=== PATIENT | male | born 1945 | race Caucasian/White ===

== ENCOUNTER 2020-12-27 08:54 | Inpatient (IN) | payer MEDICARE, OTHER ==
[~2020-12-27 08:54] MED LIST: ALTACE 2.5MG T2.5 MG; ASPIRIN E.C. 8181 MG; COMPLETE1 TA1; LIPI MAX1 SGL; LIPITOR 40MG TA40 MG; TENORMIN 2525 MG/TAB
--- NOTE | 2020-12-27 09:00 | NUR ---
Patient to room 319 by wheelchair. Son with the patient. Patient A&Ox3. Denies pain and discomfort. Nurse oriented the patient to location, room and call light. No further needs expressed from the patient. Call light within reach
[2020-12-27 09:58] LABS: BASO % 0.6 % (0.0-2.0); EOS # 0.1 (0.0-0.7); EOS % 2.1 % (0-4.0); GRAN # 4.3 (1.4-6.5); GRAN % 64.3 % (42.2-75.2); HEMOGLOBIN 12.6 g/dl (13.5-18.0); LYMPH # 1.3 (1.2-3.4); LYMPH % 19.6 % (20.0-51.0); MEAN CELL VOLUME 94 fl (80.0-100.0); MEAN CORPUSCULAR HEMOGLOBIN 32 pg (27.0-31.0); MEAN CORPUSCULAR HGB CONC 34 g/dl (33.0-37.0); MEAN PLATELET VOLUME 10.4 fl (7.4-10.4); MONO # 0.9 (0.1-0.6); MONO % 13.1 % (1.7-9.3); PLATELET COUNT 202 K/mm3 (130-400); RED BLOOD COUNT 3.94 M/mm3 (4.20-5.60); REDCELL DISTRIBUTION WIDTH-CV 12.8 % (11.5-14.5)
[2020-12-27 09:59] LABS: HEMATOCRIT 36.9 % (42.0-52.0)
[2020-12-27 10:04] LABS: INR 1.1 (0.8-3.0)
[2020-12-27 10:16] LABS: ALBUMIN 3.7 gm/dL (3.5-5.0); BILIRUBIN,TOTAL 0.5 mg/dL (0.0-1.0); CREATININE, serum 1.07 (0.66-1.25); POTASSIUM 4.3 mmol/L (3.4-5.0); TOTAL PROTEIN 6.4 gm/dL (6.4-8.2)
[2020-12-27] MEDS ORDERED: PLAVIX 75MG TAB75 MG PO (10:27)
[2020-12-27] MEDS ORDERED: OMEGA-3 FISH1000 MG PO (10:27)
[2020-12-27 10:30] VITALS: BP 138/59; PULSE 59; TEMP 98.4
[2020-12-27] MEDS ORDERED: TOPROL XL 50MG50 MG PO (10:31)
[2020-12-27] MEDS ORDERED: CRESTOR40 MG PO (10:32)
[2020-12-27] MEDS ORDERED: ZOLOFT 100MG100 MG PO (10:33)
[2020-12-27] MEDS ORDERED: MASON NATURAL1200 MG PO (10:48)
[2020-12-27] MEDS ORDERED: CENTRUM SILVER1 TAB PO (10:48)
[2020-12-27 11:28] VITALS: BP 132/52; PULSE 51; TEMP 98.1
[2020-12-27 15:43] VITALS: BP 130/65; PULSE 54; TEMP 98
--- NOTE | 2020-12-27 17:17 | NUR ---
Patient having an uneventful day. States that he is "feeling lonely" nurse stated and talked with the patient. VSS. IV CDI. Denies pain and discomfort. No further needs expressed from the patient. Call light within reach
[2020-12-27 20:26] VITALS: BP 136/58; PULSE 52; TEMP 98.3
--- NOTE | 2020-12-27 21:43 | NUR ---
PATIENT ALERT AND ORIENTED X 4. RESTING IN BED, DENIES PAIN AT THIS TIME. PM MEDICATION GIVEN ORDERED. INDEPENDENT IN ROOM. TOLERATED PO WELL. WILL CONTINUE TO MONITOR.
[2020-12-28 01:25] VITALS: BP 130/58; PULSE 52; TEMP 98.2
[2020-12-28 04:38] VITALS: BP 132/56; PULSE 51; TEMP 98
[2020-12-28 08:30] VITALS: BP 136/57; PULSE 48; TEMP 98.5
--- NOTE | 2020-12-28 09:31 | NUR ---
PT UP INDEPENDENTLY IN AND OUT OF ROOM CONSENT OBTAINED FOR LOOP RECORDER PLACEMENT. VSS, AM MEDS GIVEN ORDERED.
--- NOTE | 2020-12-28 10:32 | NUR ---
Initial visit; Patient thanked Vice President & General [employer] for looking in on him, offering God's blessings and keeping him in her prayers.
[2020-12-28 12:19] VITALS: BP 140/49; PULSE 48; TEMP 98.5
--- NOTE | 2020-12-28 14:45 | NUR ---
[employer] met with patient to discuss discharge planning. Patient lives alone in [place], [place] and sees Dr. Meneses for primary care. Patient obtains medications from [facility] with no difficulties. Patient does not use any DME and is independent with ADLS. Patient believes he's completed DPOA-HC, but SW did not locate copy in EMR. Patient is and has four children: Issac Addison (ph#[phone]), Zaina Tariq, Nelsy Justice, and Arely Mckenzie. Patient plans to return home upon discharge. Discharge Plan: Home
[2020-12-28 16:47] VITALS: BP 129/51; PULSE 46; TEMP 97.8
[2020-12-28 19:36] VITALS: BP 122/53; PULSE 49; TEMP 98.1
--- NOTE | 2020-12-28 20:06 | NUR ---
PATIENT ALERT AND ORIENTED X4. INDEPENDENT IN ROOM. S/P LOOP RECORDER PLACEMENT TODAY. PATIENT DENIES PAIN, OR CHEST PAIN. TOLERATES PO INTAKE. VITAL SIGNS STABLE. BRADICARDIA ON TELEMETRY MD AWARE. WILL CONTINUE TO MONITOR.
[2020-12-29 00:29] VITALS: BP 112/52; PULSE 50; TEMP 97.6
[2020-12-29 03:55] VITALS: BP 153/59; PULSE 47; TEMP 97.6
[2020-12-29 07:13] LABS: BASO % 0.4 % (0.0-2.0); EOS # 0.2 (0.0-0.7); EOS % 2.7 % (0-4.0); GRAN # 4.8 (1.4-6.5); GRAN % 60.7 % (42.2-75.2); HEMATOCRIT 39.8 % (42.0-52.0); HEMOGLOBIN 13.7 g/dl (13.5-18.0); LYMPH # 1.7 (1.2-3.4); LYMPH % 21.6 % (20.0-51.0); MEAN CELL VOLUME 94 fl (80.0-100.0); MEAN CORPUSCULAR HEMOGLOBIN 32 pg (27.0-31.0); MEAN CORPUSCULAR HGB CONC 34 g/dl (33.0-37.0); MEAN PLATELET VOLUME 10.7 fl (7.4-10.4); MONO # 1.1 (0.1-0.6); MONO % 14.3 % (1.7-9.3); PLATELET COUNT 199 K/mm3 (130-400); RED BLOOD COUNT 4.24 M/mm3 (4.20-5.60); REDCELL DISTRIBUTION WIDTH-CV 12.7 % (11.5-14.5)
[2020-12-29 07:26] LABS: CALCIUM 9.2 mg/dL (8.4-10.2); CREATININE, serum 1.06 (0.66-1.25); MAGNESIUM 1.8 mg/dL (1.6-2.3); POTASSIUM 4.5 mmol/L (3.4-5.0)
--- NOTE | 2020-12-29 08:25 | NUR ---
Assessment completed, alert/oriented, vital sign stable, denies pain or discomfort, SB on tele rate 40's, QTC WNL and Sotalol dose given, lungs CTA/ no respd.ifficulty, sitting up in his chair eating breakfast, denies other needs, anticipate discharge home
[2020-12-29 08:50] VITALS: BP 120/52; PULSE 55; TEMP 97.6
[2020-12-29] MEDS ORDERED: CEPHALEXIN500 M1 PO (10:12)
[2020-12-29] MEDS ORDERED: BETAPACE 80MG80 MG PO (10:12)
--- NOTE | 2020-12-29 10:39 | NUR ---
Discharge orders discussed with patient, instructed to follow up with Cardiology and PCP as scheduled, discussed icision care/bathing /activity restrictions, instructed to take meds a prescribed, scripts for sotalol and keflex sent to pharmacy for him, IV and tele removed, leaving with his son, ambulatory and I escorted them out the door
== END 2020-12-29 11:05 | disposition home or self-care (01) | DRG 262 ==
LOC: MEDICAL 08:54
PROVIDERS: ADMIT Internal Medicine Cardiovascular Disease
PROC: 0JH632Z Insertion of Monitoring Device into Chest Subcutaneous Tissue and Fascia, Percutaneous Approach (ICD-10-PCS; principal; 2020-12-29)
DX: I48.91 Unspecified atrial fibrillation (principal); I10 Essential (primary) hypertension; I25.2 Old myocardial infarction; Z95.1 Presence of aortocoronary bypass graft
CPT/HCPCS: C1764